=== PATIENT | male | born 1965 | race Caucasian/White ===

== ENCOUNTER → 2017-01-03 | Outpatient (CLI) | payer BC ==
[~2017-01-03] MED LIST: AMLO-110 PO; OXYC-57 PO; RANI150T3 PO
--- NOTE | 2017-01-03 14:17 | DIAGNOSTIC IMAGING REPORT ---
CHEST 2 VIEWS ROUTINE HISTORY: DRY COUGH COMPARISON: Chest 08/22/2014. FINDINGS: The lungs are clear. Cardiac silhouette is normal in size. No pleural effusions. No pneumothorax. IMPRESSION: No acute process. Electronically signed by: Jerad Marin M.D. 01/03/2017 2:15 PM Dictated Date/Time: 01/03/2017 2:13 PM
== END | disposition home or self-care (01) ==
LOC: C.RAD1850 14:02
PROVIDERS: ATTEND Family Medicine
DX: R05 Cough (principal)